=== PATIENT | female | born 1970 | race Caucasian/White ===

== ENCOUNTER 2017-06-29 18:48 | Emergency (ER) | payer OTHER ==
[2017-06-29] MEDS ORDERED: DEXAMETHASONE 4 MG TAB PO STA (19:52)
[2017-06-29] MEDS ORDERED: ALBUTEROL NEBULIZED 2.5 MG/3 ML INHALATION STA (19:52)
--- NOTE | 2017-06-29 20:13 | XR ---
EXAMINATION TYPE: XR soft tissue neck DATE OF EXAM: 06/29/2017 COMPARISON: NONE HISTORY: Cough TECHNIQUE: 2 views FINDINGS: Epiglottis appears normal. Subglottic trachea appears normal. Prevertebral soft tissues eric ear normal. IMPRESSION: Normal cervical soft tissue exam.
--- NOTE | 2017-06-29 20:13 | XR ---
EXAMINATION TYPE: XR chest 2V DATE OF EXAM: 06/29/2017 COMPARISON: NONE HISTORY: Cough TECHNIQUE: Frontal and lateral views of the chest are obtained. FINDINGS: Heart and mediastinum are normal. Lungs are clear. Diaphragm is normal. Bony thorax appear s normal. IMPRESSION: Normal chest
--- NOTE | 2017-06-29 20:17 | ED ---
General Adult HPI - General Chief complaint: Shortness of Breath Stated complaint: Diff Breathing Time Seen by Provider: 06/29/17 19:19 Source: patient Mode of arrival: ambulatory Limitations: no limitations - History of Present Illness Initial comments: patient is a 46-year-old female presents with a chief complaint of shortness of breath and lost voice. Patient states this started yesterday. She cannot identify any inciting incidences. There are no aggravating or alleviating factors. Patient also admits to being "run down". She does not have any significant medical history. Patient states that she was vaccinated as a child. She denies any fevers, chills, nausea, vomiting. - Related Data Home Medications Medication Instructions Recorded Confirmed Levothyroxine Sodium [Synthroid] 25 mcg PO DAILY 06/29/17 06/29/17 Allergies Allergy/AdvReac Type Severity Reaction Status Date / Time Milk Containing Products Allergy Unknown Verified 06/29/17 19:17 [Dairy] acetaminophen [From Percocet] AdvReac Nausea & Verified 06/29/17 19:17 Vomiting oxycodone [From Percocet] AdvReac Nausea & Verified 06/29/17 19:17 Vomiting Review of Systems ROS Statement: Those systems with pertinent positive or pertinent negative responses have been documented in the HPI. ROS Other: All systems not noted in ROS Statement are negative. Constitutional: Denies: fever Eyes: Denies: vision change ENT: Reports: throat pain. Denies: ear pain Respiratory: Reports: cough Cardiovascular: Reports: chest pain Endocrine: Reports: fatigue Gastrointestinal: Denies: abdominal pain, nausea, vomiting Genitourinary: Denies: urgency, dysuria Musculoskeletal: Denies: back pain Skin: Denies: rash, lesions Neurological: Denies: headache Past Medical History Past Medical History: Thyroid Disorder History of Any Multi-Drug Resistant Organisms: None Reported Additional Past Surgical History / Comment(s): vein surgery Past Psychological History: Depression Smoking Status: Never smoker Past Alcohol Use History: None Reported Past Drug Use History: None Reported General Exam Limitations: no limitations General appearance: alert, in no apparent distress Head exam: Present: atraumatic, normocephalic Eye exam: Present: normal appearance ENT exam: Present: normal exam, mucous membranes moist Respiratory exam: Present: normal lung sounds bilaterally Cardiovascular Exam: Present: regular rate, normal rhythm GI/Abdominal exam: Present: soft. Absent: distended, tenderness Rectal exam: Present: deferred Neurological exam: Present: alert, oriented X3, CN II-XII intact Psychiatric exam: Present: normal affect, normal mood Skin exam: Present: warm, dry, intact Course Vital Signs 06/29/17 06/29/17 06/29/17 19:05 19:18 20:20 Temperature 97.5 F L Pulse Rate 87 70 Respiratory 18 20 16 Rate Blood Pressure 121/71 O2 Sat by Pulse 99 Oximetry 06/29/17 06/29/17 20:30 21:14 Temperature Pulse Rate 72 83 Respiratory 16 16 Rate Blood Pressure 104/59 O2 Sat by Pulse 100 Oximetry Medical Decision Making - Medical Decision Making patient presents with chief complaint of shortness of breath, cough, and lost voice. This is been going on for 1 day. Patient does admit to having sick contacts at work. History and physical examination most consistent with laryngitis however patient will have a chest x-ray, and soft tissue neck. Patient perked negative, this point PE is very unlikely. Patient will be given a dose of Decadron in the emergency department.x-ray of the chest do not show any acute process. X-ray soft tissue neck does not show any narrowing of the airway. I discussed the findings with the patient. She received a dose of steroids in the emergency department. I discussed the need for vocal rest, anti -inflammatories and follow up with primary care. She is agreeable with the current care plan. Patient is stable for discharge. She was given X wasn't signs and symptoms that should prompt return visit to the emergency department. Disposition Clinical Impression: Laryngitis Disposition: HOME SELF-CARE Condition: Good Instructions: Laryngitis (ED) Referrals: None,Stated [Primary Care Provider] - 1-2 days
[2017-06-29 21:39] VITALS: BP 114/71; PULSE 87; RESP 18; TEMP 98.7
== END 2017-06-29 21:40 | disposition home or self-care (01) ==
LOC: EC 18:48
DX: J04.0 Acute laryngitis (principal); E07.9 Disorder of thyroid, unspecified; R06.02 Shortness of breath; Z91.011 Allergy to milk products; Z88.5 Allergy status to narcotic agent; Z88.6 Allergy status to analgesic agent; Z79.899 Other long term (current) drug therapy
CPT/HCPCS: 99285; 94640; 70360; 71020; J8540

== ENCOUNTER 2017-08-04 12:32 | Observation (INO) | payer OTHER ==
[2017-08-04] MEDS ORDERED: NITROGLYCERIN SL TABS 0.4 MG TAB SUBLINGUAL STA (12:55)
[2017-08-04] MEDS ORDERED: ASPIRIN 81 MG PO STA (12:55)
--- NOTE | 2017-08-04 12:58 | ED ---
Chest Pain HPI - General Chief Complaint: Chest Pain Stated Complaint: Chest Tightness, Blurred Vision Time Seen by Provider: 08/04/17 12:41 Source: patient, RN notes reviewed Mode of arrival: wheelchair Limitations: no limitations - History of Present Illness Initial Comments: this is a 38-year-old female who states she had the onset at work earlier today of chest pain pressure achy in nature retrosternal upper chest across her some radiation of the neck for last 1 or 2 hours it was really 7/10 severity now down to a 4/10 chest and complains some occipital and left-sided headache . She has some nausea no vomiting she also states she had a little bit of blurry vision which is resolved she has a history of PSVT but no issues with this recently. She also states she has some shakes earlier. No prior history of heart disease or is a family history of her dad having heart disease. He did not take any aspirin today. MD Complaint: chest pain, other - Related Data Home Medications Medication Instructions Recorded Confirmed Levothyroxine Sodium [Synthroid] 25 mcg PO DAILY 06/29/17 08/04/17 Allergies Allergy/AdvReac Type Severity Reaction Status Date / Time Milk Containing Products Allergy Unknown Verified 08/04/17 13:46 [Dairy] acetaminophen [From Percocet] AdvReac Nausea & Verified 08/04/17 13:46 Vomiting oxycodone [From Percocet] AdvReac Nausea & Verified 08/04/17 13:46 Vomiting Review of Systems ROS Statement: Those systems with pertinent positive or pertinent negative responses have been documented in the HPI. ROS Other: All systems not noted in ROS Statement are negative. EKG Findings - EKG Results: EKG: interpreted by BALBINA, sinus rhythm (sinus rhythm with evidence of first- degree AV block rate was 70. Interval 214 QRS duration 74 he says QTC of 370/ 389 st-t wave changes.) Past Medical History Past Medical History: Thyroid Disorder History of Any Multi-Drug Resistant Organisms: None Reported Additional Past Surgical History / Comment(s): vein surgery Past Psychological History: Depression Smoking Status: Never smoker Past Alcohol Use History: None Reported Past Drug Use History: None Reported General Exam - General Exam Comments Initial Comments: this is a well-developed well-nourished awake alert oriented 3 female Limitations: no limitations General appearance: alert, anxious Head exam: Present: atraumatic, normocephalic, normal inspection Eye exam: Present: normal appearance, PERRL, EOMI. Absent: scleral icterus, conjunctival injection, periorbital swelling ENT exam: Present: normal exam, mucous membranes moist Neck exam: Present: normal inspection. Absent: tenderness, meningismus, lymphadenopathy Respiratory exam: Present: normal lung sounds bilaterally. Absent: respiratory distress, wheezes, rales, rhonchi, stridor Cardiovascular Exam: Present: regular rate, normal rhythm, normal heart sounds. Absent: systolic murmur, diastolic murmur, rubs, gallop, clicks GI/Abdominal exam: Present: soft, normal bowel sounds. Absent: distended, tenderness, guarding, rebound, rigid Extremities exam: Present: normal inspection, full ROM, normal capillary refill. Absent: tenderness, pedal edema, joint swelling, calf tenderness Back exam: Present: normal inspection Neurological exam: Present: alert, oriented X3, CN II-XII intact Psychiatric exam: Present: normal affect, normal mood Skin exam: Present: warm, dry, intact, normal color. Absent: rash Course Vital Signs 08/04/17 08/04/17 08/04/17 12:36 12:51 13:55 Temperature 97.8 F Pulse Rate 84 77 73 Respiratory 18 16 16 Rate Blood Pressure 158/73 150/89 120/79 O2 Sat by Pulse 99 100 99 Oximetry 08/04/17 15:20 Temperature 97.5 F L Pulse Rate 62 Respiratory 16 Rate Blood Pressure 116/62 O2 Sat by Pulse 100 Oximetry Chest Pain MDM - MDM Patient did get relief from the chest pain with nitroglycerin. Her lab work is thus far negative. X-rays are negative for acute findings. Patient's presentation consistent with angina. Critical Care Time Critical Care Time: Yes Critical Care Time: preliminary clinical care time which includes initial presentation with history physical labs x-rays reevaluation the patient to responsive therapy admission orders documentation the above discussed with a physician Disposition Clinical Impression: Unstable angina pectoris, Chest pain Disposition: ADMITTED IP TO THIS [facility] Condition: Stable Referrals: None,Stated [Primary Care Provider] - 1-2 days
[2017-08-04 13:07] LABS: Basophils % (A) 1 %; Eosinophils # (A) 0.1 k/uL (0-0.7); Eosinophils % (A) 2 %; HCT 40.2 % (34.0-46.0); HGB 12.4 gm/dL (11.4-16.0); Lymphocytes # (A) 1.2 k/uL (1.0-4.8); Lymphocytes % (A) 26 %; MCH 27.3 pg (25.0-35.0); MCV 88.1 fL (80.0-100.0); Mean Platelet Volume 7.6; Monocytes # (A) 0.3 k/uL (0-1.0); Monocytes % (A) 5 %; Neutrophils # (A) 3.1 k/uL (1.3-7.7); Neutrophils % (A) 64 %; Platelet Count 166 k/uL (150-450); RBC 4.56 m/uL (3.80-5.40); RDW 13.6 % (11.5-15.5); WBC 4.8 k/uL (3.8-10.6)
[2017-08-04 13:18] LABS: ALT 27 U/L (9-52); AST 19 U/L (14-36); Albumin 4.2 g/dL (3.5-5.0); Alkaline Phosphatase 49 U/L (38-126); Anion Gap 8 mmol/L; Blood Urea Nitrogen 14 mg/dL (7-17); Calcium 9.5 mg/dL (8.4-10.2); Carbon Dioxide 28 mmol/L (22-30); Chloride 104 mmol/L (98-107); Glucose 107 mg/dL (74-99); Magnesium 1.9 mg/dL (1.6-2.3); Potassium 3.7 mmol/L (3.5-5.1); Sodium 140 mmol/L (137-145); Total Bilirubin 0.4 mg/dL (0.2-1.3); Total Protein 7.3 g/dL (6.3-8.2)
--- NOTE | 2017-08-04 13:21 | XR ---
EXAMINATION TYPE: XR chest 2V DATE OF EXAM: 08/04/2017 COMPARISON: Chest x-ray June 29, 2017 HISTORY: Chest and arm pain today. TECHNIQUE: Frontal and lateral views of the chest are obtained. FINDINGS: There is no focal air space opacity, pleural effusion, or pneumothorax seen. The cardiac silhouette size is within normal limits. The osseous structures are intact. IMPRESSION: No acute process. No significant change from prior.
[2017-08-04 13:28] LABS: D-Dimer 0.58 mg/L FEU (<0.60); INR 1.1 (<1.2); Partial Thromboplastin Time 22.2 sec (22.0-30.0); Prothrombin Time 10.4 sec (9.0-12.0)
[2017-08-04 13:33] LABS: Creatine Kinase 158 U/L (30-135)
[2017-08-04 13:46] LABS: Creatine Kinase MB <0.2 ng/mL (0.0-2.4); Troponin I <0.012 ng/mL (0.000-0.034)
[2017-08-04] MEDS ORDERED: NITROGLYCERIN SL TABS 0.4 MG TAB SUBLINGUAL PRN (16:46)
[2017-08-04] MEDS ORDERED: HEPARIN SODIUM,PORCINE 5,000 UNIT/ML 1 ML VIAL IV ONE (16:46)
[2017-08-04] MEDS ORDERED: SODIUM CHLORIDE 0.9% 1,000 ML IV SCH (17:00)
[2017-08-04] MEDS ORDERED: HEPARIN SOD,PORK IN 0.45% NACL 25,000 UNIT in 0.45% NACL 1 500ML.BAG IV SCH (17:00)
[2017-08-04 18:44] VITALS: BMI 25.5
[2017-08-04] MEDS: NITROGLYCERIN OINT 1 INCH/GM PACKET TOPICAL SCH (20:01)
[2017-08-04 20:06] LABS: Creatine Kinase 301 U/L (30-135)
[2017-08-04 20:19] LABS: Creatine Kinase MB 0.6 ng/mL (0.0-2.4); Troponin I <0.012 ng/mL (0.000-0.034)
[2017-08-05] MEDS: NITROGLYCERIN OINT 1 INCH/GM PACKET TOPICAL SCH ×3 (00:18→11:35)
[2017-08-05 00:56] LABS: Creatine Kinase 93 U/L (30-135)
[2017-08-05 01:09] LABS: Creatine Kinase MB <0.2 ng/mL (0.0-2.4); Troponin I <0.012 ng/mL (0.000-0.034)
[2017-08-05] MEDS ORDERED: IBUPROFEN 600 MG TAB PO PRN (02:45)
[2017-08-05] MEDS: IBUPROFEN 600 MG TAB PO PRN ×2 (03:31→12:10)
[2017-08-05 03:42] VITALS: RESP 18
[2017-08-05] MEDS ORDERED: LEVOTHYROXINE 25 MCG TAB PO SCH (06:30)
--- NOTE | 2017-08-05 07:53 | P.CRDCN ---
History of Present Illness Consult date: 08/05/17 Chief complaint: Chest pain History of present illness: This is a pleasant 46-year-old female patient with no significant past medical history presented to the emergency room complaining of chest discomfort. She was in her usual state of health until yesterday when she was at work and suddenly she started experiencing headache and then she felt weak. Subsequently she developed chest discomfort in the mid of the chest as a dull kind of feeling without radiation to the arm or neck or shoulder and without associated symptoms of shortness of breath, dizziness, nausea or vomiting, or syncope. The discomfort lasted about half an hour until she presented to the emergency room and it was subsiding at that point. She was given aspirin and nitroglycerin sublingual with mild improvement in the chest discomfort. In terms of workup, the EKG showed sinus rhythm without any ST or T-wave abnormalities consistent with ischemia. 3 sets of cardiac enzymes were checked and came in to be unremarkable. The chest x-ray did not show any acute abnormalities. The d-dimer came in to be unremarkable. The CBC and BNP came in to be unremarkable as well. In terms of past medical history, the patient does not have diabetes or hypertension or dyslipidemia and she never been diagnosed with CAD in the past. She stated that she was diagnosed was tachycardia at some point in the past. 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 She does not smoke or drink alcohol. She does have a family history of cardiac disease with her mother but is unclear if his coronary artery disease or not. Past Medical History Past Medical History: Thyroid Disorder History of Any Multi-Drug Resistant Organisms: None Reported Additional Past Surgical History / Comment(s): vein surgery Past Psychological History: Depression Smoking Status: Never smoker Past Alcohol Use History: None Reported Past Drug Use History: None Reported Medications and Allergies Home Medications Medication Instructions Recorded Confirmed Type Levothyroxine Sodium [Synthroid] 25 mcg PO DAILY 06/29/17 08/04/17 History Allergies Allergy/AdvReac Type Severity Reaction Status Date / Time Milk Containing Products Allergy Unknown Verified 08/04/17 13:46 [Dairy] acetaminophen [From Percocet] AdvReac Nausea & Verified 08/04/17 13:46 Vomiting oxycodone [From Percocet] AdvReac Nausea & Verified 08/04/17 13:46 Vomiting Physical Exam Vitals: Vital Signs Temp Pulse Pulse Resp BP BP Pulse Ox 12/28/17 03:38 66 18 100/53 99 08/04/17 20:00 97.5 F L 80 16 116/58 99 08/04/17 18:55 97.9 F 68 16 128/74 100 08/04/17 17:56 98.2 F 08/04/17 17:51 98 F 69 16 129/77 100 08/04/17 15:20 97.5 F L 62 16 116/62 100 08/04/17 13:55 73 16 120/79 99 08/04/17 12:51 77 16 150/89 100 08/04/17 12:36 97.8 F 84 18 158/73 99 Intake and Output 08/04/17 08/05/17 08/05/17 22:59 06:59 14:59 Intake Total 178.535 Balance 178.535 Intake: Intake, IV Titration 178.535 Amount Heparin Sod,Pork in 0.45% 178.535 NaCl 25,000 unit In 0.45 % NaCl 1 500ml.bag @ 12 UNITS/KG/HR 18.28 mls/hr IV .Q24H [facility] Rx#: [id number] Other: Voiding Method Toilet # Voids 1 1 Weight 76.2 kg 79.1 kg - Constitutional General appearance: no acute distress - Respiratory Respiratory: bilateral: CTA - Cardiovascular Rhythm: regular Heart sounds: normal: S1, S2 Results 08/04/17 12:50 08/04/17 12:50 Cardiac Enzymes 08/04/17 08/04/17 08/04/17 Range/Units 12:50 12:50 19:32 AST 19 (14-36) U/L CK-MB (CK-2) <0.2 0.6 (0.0-2.4) ng/mL Troponin I <0.012 <0.012 (0.000-0.034) ng/mL 08/05/17 Range/Units 00:13 AST (14-36) U/L CK-MB (CK-2) <0.2 (0.0-2.4) ng/mL Troponin I <0.012 (0.000-0.034) ng/mL Coagulation 08/04/17 08/05/17 08/05/17 Range/Units 12:50 00:13 07:18 PT 10.4 (9.0-12.0) sec APTT 22.2 38.0 H 41.7 H (22.0-30.0) sec CBC 08/04/17 Range/Units 12:50 WBC 4.8 (3.8-10.6) k/uL RBC 4.56 (3.80-5.40) m/uL Hgb 12.4 (11.4-16.0) gm/dL Hct 40.2 (34.0-46.0) % Plt Count 166 (150-450) k/uL Comprehensive Metabolic Panel 08/04/17 Range/Units 12:50 Sodium 140 (137-145) mmol/L Potassium 3.7 (3.5-5.1) mmol/L Chloride 104 (98-107) mmol/L Carbon Dioxide 28 (22-30) mmol/L BUN 14 (7-17) mg/dL Creatinine 0.74 (0.52-1.04) mg/dL Glucose 107 H (74-99) mg/dL Calcium 9.5 (8.4-10.2) mg/dL AST 19 (14-36) U/L ALT 27 (9-52) U/L Alkaline Phosphatase 49 (38-126) U/L Total Protein 7.3 (6.3-8.2) g/dL Albumin 4.2 (3.5-5.0) g/dL Current Medications Generic Name Dose Route Start Last Admin Trade Name Freq PRN Reason Stop Dose Admin Aspirin 325 mg 08/05/17 09:00 Aspirin PO DAILY [facility] Heparin Sodium/Sodium Chloride 500 mls @ 18.28 mls/hr 08/04/17 17:00 03:34 25,000 unit/ Sodium Chloride IV 15 units/kg/hr .Q24H [facility] 22.86 mls/hr Protocol Titration 12 UNITS/KG/HR Ibuprofen 600 mg 08/05/17 02:58 08/05/17 03:31 Motrin PO 600 mg QID PRN Administration Mild to Moderate Pain Levothyroxine Sodium 25 mcg 08/05/17 06:30 08/05/17 06:20 Synthroid PO 25 mcg 0630 [facility] Administration Nitroglycerin 1 inch 08/04/17 18:00 08/05/17 06:19 Nitro-Bid Oint TOPICAL Not Given Q6HR [facility] Nitroglycerin 0.4 mg 08/04/17 16:46 Nitrostat SUBLINGUAL Q5M PRN Chest Pain Sodium Chloride 10 ml 08/04/17 21:00 08/04/17 19:21 Saline Flush IV Not Given Q12HR [facility] Intake and Output 08/04/17 08/05/17 08/05/17 22:59 06:59 14:59 Intake Total 178.535 Balance 178.535 Intake: Intake, IV Titration 178.535 Amount Heparin Sod,Pork in 0.45% 178.535 NaCl 25,000 unit In 0.45 % NaCl 1 500ml.bag @ 12 UNITS/KG/HR 18.28 mls/hr IV .Q24H [facility] Rx#: [id number] Other: Voiding Method Toilet # Voids 1 1 Weight 76.2 kg 79.1 kg 08/04/17 12:50 08/04/17 12:50 Assessment and Plan Assessment: Assessment #1 atypical chest discomfort Plan #1 the patient was ruled out for acute coronary event #2 I will schedule the patient to undergo an exercise treadmill stress test #3 obtain an echocardiogram was Doppler #4 follow-up with the patient Thank you for allowing us participate in her care
[2017-08-05 08:27] LABS: Cholesterol 164 mg/dL (<200); HDL Cholesterol 50 mg/dL (40-60); LDL Cholesterol,Calculated 103 mg/dL (0-99); Triglycerides 54 mg/dL (<150)
[2017-08-05] MEDS ORDERED: ASPIRIN 325 MG TAB PO SCH (09:00)
[2017-08-05 12:15] VITALS: TEMP 97.3
[2017-08-05 12:16] VITALS: BP 111/63; PULSE 84
--- NOTE | 2017-08-05 12:20 | ECHOF ---
Referral Reason:chest pain MEASUREMENTS -------- HEIGHT: 172.7 cm WEIGHT: 78.9 kg BP: 100/53 RVIDd: 3.2 cm (< 3.3) IVSd: 1.0 cm (0.6 - 1.1) LVIDd: 4.2 cm (3.9 - 5.3) LVPWd: 1.0 cm (0.6 - 1.1) IVSs: 1.2 cm LVIDs: 2.9 cm LVPWs: 1.7 cm LA Diam: 3.2 cm (2.7 - 3.8) LAESV Index (A-L): 24.34 ml/m Ao Diam: 3.4 cm (2.0 - 3.7) AV Cusp: 2.4 cm (1.5 - 2.6) MV EXCURSION: 13.254 mm (> 18.000) MV EF SLOPE: 80 mm/s (70 - 150) EPSS: 0.5 cm MV E Denis: 0.92 m/s MV DecT: 220 ms MV A Denis: 0.69 m/s MV E/A Ratio: 1.34 FINDINGS -------- Sinus rhythm. This was a technically adequate study. The left ventricular size is normal. Left ventricular wall thickness is normal. Overall left vent ricular systolic function is normal with, an EF between 55 - 60 %. The right ventricle is normal in size. The left atrial size is normal. The right atrium is normal in size. The aortic valve is trileaflet and appears structurally normal. There is trace mitral regurgitation. The tricuspid valve appears structurally normal. The pulmonic valve was not well visualized. The aortic root size is normal. Normal inferior vena cava with normal inspiratory collapse consistent with estimated right atrial pre ssure of 5 mmHg. There is no pericardial effusion. CONCLUSIONS -------- 1. Sinus rhythm. 2. This was a technically adequate study. 3. The left ventricular size is normal. 4. Left ventricular wall thickness is normal. 5. Overall left ventricular systolic function is normal with, an EF between 55 - 60 %. 6. The right ventricle is normal in size. 7. The left atrial size is normal. 8. The right atrium is normal in size. 9. The aortic valve is trileaflet and appears structurally normal. 10. There is trace mitral regurgitation. 11. The tricuspid valve appears structurally normal. 12. The pulmonic valve was not well visualized. 13. The aortic root size is normal. 14. Normal inferior vena cava with normal inspiratory collapse consistent with estimated right atrial pressure of 5 mmHg. 15. There is no pericardial effusion. SENIOR OPERATIONS ANALYST: Gina Soto RDCS
[2017-08-05] MEDS ORDERED: BUTALB/APAP/CAFF 50-325-40MG TAB PO PRN (13:28)
--- NOTE | 2017-08-05 13:40 | EST ---
EXERCISE STRESS DATE OF SERVICE: 08/05/2017 AGE: 46 SEX: Female HT: 68 WT: 174 PROTOCOL: Matt. STAGE: II DURATION OF EXERCISE: 7:12 HEART RATE REST: 76 BLOOD PRESSURE REST: 112/71 MAXIMUM HEART RATE ACHIEVED: 162 MAXIMUM BLOOD PRESSURE: 162/54 85% MPHR: 146 100% MPHR: 172 METS: 8.7 INDICATIONS: Chest pain. CLINICAL INFORMATION: Baseline EKG revealed normal sinus rhythm with isolated PVCs. Patient walked for 7 minutes 12 seconds. Resting heart rate was 76 beats per minute. Peak heart rate was 162 beats per minute. Resting blood pressure was 112/71. Peak blood pressure 162/54. EKG did not reveal any ST segment changes to indicate ischemia. Patient did not have any angina or arrhythmia. By EKG criteria, this is a negative stress test with fair exercise capacity. MMODL / IJN: [id number] /
--- NOTE | 2017-08-05 18:15 | P.HPIM ---
History of Present Illness This is a pleasant 46-year-old female patient with no significant past medical history presented to the emergency room complaining of chest discomfort. She was in her usual state of health until yesterday when she was at work and suddenly she started experiencing headache and then she felt weak. Subsequently she developed chest discomfort in the mid of the chest as a dull kind of feeling without radiation to the arm or neck or shoulder and without associated symptoms of shortness of breath, dizziness, nausea or vomiting, or syncope. The discomfort lasted about half an hour until she presented to the emergency room and it was subsiding at that point. She was given aspirin and nitroglycerin sublingual with mild improvement in the chest discomfort. In terms of workup, the EKG showed sinus rhythm without any ST or T-wave abnormalities consistent with ischemia. 3 sets of cardiac enzymes were checked and came in to be unremarkable. The chest x-ray did not show any acute abnormalities. The d-dimer came in to be unremarkable. The CBC and BNP came in to be unremarkable as well. Patient on a stress test which was negative and patient is being discharged today.. Patient also comparing of headache has been going on for some time and patient was complaining of visual problems as well. Patient will need outpatient visual acuity testing and need to be tested for glaucoma patient also has neck pain, cervical cephalalgia is a also a differential along with migraine patient will be given symptomatically treatment for headache will be discharged to follow up with the neurology and ophthalmology as an outpatient Review of Systems REVIEW OF SYSTEMS: CONSTITUTIONAL: No fever, no malaise, no fatigue. HEENT: No recent visual problems or hearing problems. Denied any sore throat. CARDIOVASCULAR: No orthopnea, PND, no palpitations, no syncope. PULMONARY: No shortness of breath, no cough, no hemoptysis. GASTROINTESTINAL: No diarrhea, no nausea, no vomiting, no abdominal pain. Normoactive bowel sounds. NEUROLOGICAL: no weakness, no numbness. HEMATOLOGICAL: Denies any bleeding or petechiae. GENITOURINARY: Denies any burning micturition, frequency, or urgency. MUSCULOSKELETAL/RHEUMATOLOGICAL: Denies any joint pain, swelling, or any muscle pain. ENDOCRINE: Denies any polyuria or polydipsia. The rest of the 14-point review of systems is negative. Past Medical History Past Medical History: Thyroid Disorder History of Any Multi-Drug Resistant Organisms: None Reported Additional Past Surgical History / Comment(s): vein surgery Past Psychological History: Depression Smoking Status: Never smoker Past Alcohol Use History: None Reported Past Drug Use History: None Reported Medications and Allergies Home Medications Medication Instructions Recorded Confirmed Type Levothyroxine Sodium [Synthroid] 25 mcg PO DAILY 06/29/17 08/04/17 History Butalb/Acetaminophen/Caffeine 1 - 2 cap PO Q4HR #30 cap 08/05/17 Rx [Fioricet 50-300-40 mg Capsule] Allergies Allergy/AdvReac Type Severity Reaction Status Date / Time Milk Containing Products Allergy Unknown Verified 08/04/17 13:46 [Dairy] acetaminophen [From Percocet] AdvReac Nausea & Verified 08/04/17 13:46 Vomiting oxycodone [From Percocet] AdvReac Nausea & Verified 08/04/17 13:46 Vomiting Physical Exam Vitals: Vital Signs Temp Pulse Resp BP Pulse Ox 08/05/17 12:00 84 18 111/63 98 08/05/17 08:00 97.3 F L 70 18 120/67 99 08/05/17 03:38 66 18 100/53 99 08/04/17 20:00 97.5 F L 80 16 116/58 99 08/04/17 18:55 97.9 F 68 16 128/74 100 Intake and Output 08/05/17 08/05/17 08/05/17 06:59 14:59 22:59 Intake Total 178.535 Balance 178.535 Intake: Intake, IV Titration 178.535 Amount Heparin Sod,Pork in 0.45% 178.535 NaCl 25,000 unit In 0.45 % NaCl 1 500ml.bag @ 12 UNITS/KG/HR 18.28 mls/hr IV .Q24H [facility] Rx#: [id number] Other: # Voids 1 Weight 79.1 kg PHYSICAL EXAMINATION: GENERAL: The patient is alert and oriented x3, not in any acute distress. Well developed, well nourished. HEENT: Pupils are round and equally reacting to light. EOMI. No scleral icterus. No conjunctival pallor. Normocephalic, atraumatic. No pharyngeal erythema. No thyromegaly. CARDIOVASCULAR: S1 and S2 present. No murmurs, rubs, or gallops. PULMONARY: Chest is clear to auscultation, no wheezing or crackles. ABDOMEN: Soft, nontender, nondistended, normoactive bowel sounds. No palpable organomegaly. MUSCULOSKELETAL: No joint swelling or deformity. EXTREMITIES: No cyanosis, clubbing, or pedal edema. NEUROLOGICAL: Gross neurological examination did not reveal any focal deficits. SKIN: No rashes. Results CBC & Chem 7: 08/04/17 12:50 08/04/17 12:50 Labs: Abnormal Lab Results - Last 24 Hours (Table) 08/04/17 08/05/17 08/05/17 Range/Units 19:32 00:13 07:18 APTT 38.0 H (22.0-30.0) sec Total Creatine Kinase 301 H (30-135) U/L LDL Cholesterol, Calc 103 H (0-99) mg/dL 08/05/17 Range/Units 07:18 APTT 41.7 H (22.0-30.0) sec Total Creatine Kinase (30-135) U/L LDL Cholesterol, Calc (0-99) mg/dL Assessment and Plan Plan: 1 chest pain rule out acute coronary syndromes patient chest pain is atypical in nature patient did undergo stress test which was negative patient will be discharged today. Her chest pain resolved May be musculoskeletal in nature -Headache: Differentials as mentioned above patient will need to follow up with ophthalmology and neurology as mentioned above patient will be given prescription for Fioricet for her headache. -hypothyroidism continue with levofloxacin
--- NOTE | 2017-08-05 18:16 | P.DS ---
Providers Date of admission: 08/04/17 16:52 Attending physician: Manoj Hooks MD Consults: 08/04/17 16:46 Consult Physician Urgent Consulting Provider: Panda King Consult Reason/Comments: chest pain Do you want consulting provider notified?: Yes Primary care physician: Stated None Hospital Course: Refer to my [facility] Patient Condition at Discharge: Stable Plan - Discharge Summary New Discharge Prescriptions: New Butalb/Acetaminophen/Caffeine [Fioricet 50-300-40 mg Capsule] 1 - 2 cap PO Q4HR #30 cap No Action Levothyroxine Sodium [Synthroid] 25 mcg PO DAILY Discharge Medication List Levothyroxine Sodium [Synthroid] 25 mcg PO DAILY 06/29/17 [History] Butalb/Acetaminophen/Caffeine [Fioricet 50-300-40 mg Capsule] 1 - 2 cap PO Q4HR #30 cap 08/05/17 [Rx] Follow up Appointment(s)/Referral(s): Mira Ceballos MD [STAFF PHYSICIAN] - 1 Week Jass Constantino MD [STAFF PHYSICIAN] - 1 Week Simon Nuñez MD [STAFF PHYSICIAN] - 1 Week Patient Instructions/Handouts: Chest Pain (DC), Acute Headache (DC) Activity/Diet/Wound Care/Special Instructions: If fioricet not covered, ibuprofen or excedrin OK to take. Discharge Disposition: HOME SELF-CARE
== END 2017-08-05 14:22 | disposition home or self-care (01) ==
LOC: EC 12:32 → 6SEL 16:52
PROVIDERS: ADMIT Internal Medicine; ATTEND Internal Medicine
DX: R07.89 Other chest pain (principal); R11.0 Nausea; R51 Headache; R53.1 Weakness; H53.8 Other visual disturbances; E03.9 Hypothyroidism, unspecified; Z79.899 Other long term (current) drug therapy; Z88.5 Allergy status to narcotic agent; Z82.49 Family history of ischemic heart disease and other diseases of the circulatory system
CPT/HCPCS: 96366 ×2; 96376; 96365; 99285; 36415; 93005; 93017; 93306; 85379; 83880; 80061; 80053; 82550 ×2; 82553 ×2; 83735; 84484 ×2; 85025; 85610; 85730 ×2; 71020; G0378 ×2; J1644 ×2

== ENCOUNTER 2019-04-17 20:19 | Emergency (ER) | payer OTHER ==
[2019-04-17] MEDS ORDERED: SODIUM CHLORIDE 0.9% 1,000 ML IV ONE (21:17)
--- NOTE | 2019-04-17 21:22 | ED ---
Headache HPI - General Chief Complaint: Headache Stated Complaint: Headache Time Seen by Provider: 04/17/19 21:17 Mode of arrival: ambulatory Limitations: no limitations - History of Present Illness Initial Comments: Jenna is a previously healthy 48-year-old female who presents the emergency department today for evaluation of generalized malaise, fatigue and headache. Patient reports that she's been donating plasma approximately once every 2 weeks. She reports that she donated plasma on Wednesday and since that time has been feeling very tired she also developed a pressure-like headache. Patient states she's been drinking plenty of fluids make sure she is hydrated but hasn't felt any better. Patient denies any associated fevers chills nausea or vomiting. She describes her headache as pressure-like, she has not take Tylenol, Motrin or any other medications for her as she states that she's had similar headaches in the past and never responded any medications. This is not the worse headache of her life it was not sudden on onset it is not associated with any fever or focal neurologic deficits. - Related Data Home Medications Medication Instructions Recorded Confirmed Levothyroxine Sodium [Synthroid] 25 mcg PO DAILY 06/29/17 04/17/19 Allergies Allergy/AdvReac Type Severity Reaction Status Date / Time Milk Containing Products Allergy Unknown Verified 04/17/19 21:14 [Dairy] acetaminophen [From Percocet] AdvReac Nausea & Verified 04/17/19 21:14 Vomiting oxycodone [From Percocet] AdvReac Nausea & Verified 04/17/19 21:14 Vomiting Review of Systems ROS Statement: Those systems with pertinent positive or pertinent negative responses have been documented in the HPI. ROS Other: All systems not noted in ROS Statement are negative. Past Medical History Past Medical History: Thyroid Disorder History of Any Multi-Drug Resistant Organisms: None Reported Additional Past Surgical History / Comment(s): vein surgery Past Psychological History: Depression Smoking Status: Never smoker Past Alcohol Use History: None Reported Past Drug Use History: None Reported General Exam Limitations: no limitations Course Vital Signs 04/17/19 04/17/19 04/17/19 20:44 22:04 23:15 Temperature 98.0 F 98.7 F Pulse Rate 78 75 76 Respiratory 18 18 19 Rate Blood Pressure 129/84 135/87 121/73 O2 Sat by Pulse 99 98 99 Oximetry Medical Decision Making - Medical Decision Making The patient was seen and evaluated, history is obtained from patient and sinus 48-year-old female presenting with general malaise after donating plasma in addition she has a mild headache that she has not tried any [id number] remedies for Labs IV fluids Toradol were ordered Labs were reviewed with no significant abnormalities Patient was reevaluated after IV fluids and Toradol. She reports her headache is improving. At this time the patient is comfortable with the plan for d ischarge home and outpatient follow-up. I encouraged the patient to decrease the frequency of her plasma donations is a do feel this is likely contributing to her generalized malaise. - Lab Data Result diagrams: 04/17/19 22:02 04/17/19 22:02 Lab Results 04/17/19 04/17/19 Range/Units 22:02 22:02 WBC 5.9 (3.8-10.6) k/uL RBC 4.49 (3.80-5.40) m/uL Hgb 12.4 (11.4-16.0) gm/dL Hct 39.3 (34.0-46.0) % MCV 87.5 (80.0-100.0) fL MCH 27.7 (25.0-35.0) pg MCHC 31.7 (31.0-37.0) g/dL RDW 13.2 (11.5-15.5) % Plt Count 208 (150-450) k/uL Neutrophils % 59 % Lymphocytes % 32 % Monocytes % 4 % Eosinophils % 2 % Basophils % 0 % Neutrophils # 3.5 (1.3-7.7) k/uL Lymphocytes # 1.9 (1.0-4.8) k/uL Monocytes # 0.2 (0-1.0) k/uL Eosinophils # 0.1 (0-0.7) k/uL Basophils # 0.0 (0-0.2) k/uL Sodium 138 (137-145) mmol/L Potassium 4.1 (3.5-5.1) mmol/L Chloride 108 H (98-107) mmol/L Carbon Dioxide 27 (22-30) mmol/L Anion Gap 3 mmol/L BUN 13 (7-17) mg/dL Creatinine 0.67 (0.52-1.04) mg/dL Est GFR (CKD-EPI)AfAm >90 (>60 ml/min/1.73 sqM) Est GFR (CKD-EPI)NonAf >90 (>60 ml/min/1.73 sqM) Glucose 95 (74-99) mg/dL Calcium 8.8 (8.4-10.2) mg/dL Total Bilirubin 0.2 (0.2-1.3) mg/dL AST 19 (14-36) U/L ALT 18 (9-52) U/L Alkaline Phosphatase 38 (38-126) U/L Total Protein 5.9 L (6.3-8.2) g/dL Albumin 3.3 L (3.5-5.0) g/dL Disposition Clinical Impression: Headache Disposition: HOME SELF-CARE Condition: Stable Instructions (If sedation given, give patient instructions): Acute Headache (ED) Additional Instructions: I would recommend you not donate plasma more than once a month Is patient prescribed a controlled substance at d/c from ED?: No Referrals: Reggie Cole MD [Primary Care Provider] - 1-2 days
[2019-04-17] MEDS ORDERED: KETOROLAC 30 MG/ML 1 ML VIAL IVP ONE (21:53)
[2019-04-17] MEDS ORDERED: diphenhydrAMINE 50 MG/ML 1 ML VIAL IVP STA (21:53)
[2019-04-17 22:10] LABS: Basophils % (A) 0 %; Eosinophils # (A) 0.1 k/uL (0-0.7); Eosinophils % (A) 2 %; HCT 39.3 % (34.0-46.0); HGB 12.4 gm/dL (11.4-16.0); Lymphocytes # (A) 1.9 k/uL (1.0-4.8); Lymphocytes % (A) 32 %; MCH 27.7 pg (25.0-35.0); MCHC 31.7 g/dL (31.0-37.0); MCV 87.5 fL (80.0-100.0); Mean Platelet Volume 7.1; Monocytes # (A) 0.2 k/uL (0-1.0); Monocytes % (A) 4 %; Neutrophils # (A) 3.5 k/uL (1.3-7.7); Neutrophils % (A) 59 %; Platelet Count 208 k/uL (150-450); RBC 4.49 m/uL (3.80-5.40); RDW 13.2 % (11.5-15.5); WBC 5.9 k/uL (3.8-10.6)
[2019-04-17 22:20] LABS: ALT 18 U/L (9-52); AST 19 U/L (14-36); African American GFR (CKD) >90 (>60 ml/min/1.73 sqM); Albumin 3.3 g/dL (3.5-5.0); Alkaline Phosphatase 38 U/L (38-126); Anion Gap 3 mmol/L; Blood Urea Nitrogen 13 mg/dL (7-17); Calcium 8.8 mg/dL (8.4-10.2); Carbon Dioxide 27 mmol/L (22-30); Chloride 108 mmol/L (98-107); Glucose 95 mg/dL (74-99); Potassium 4.1 mmol/L (3.5-5.1); Sodium 138 mmol/L (137-145); Total Bilirubin 0.2 mg/dL (0.2-1.3); Total Protein 5.9 g/dL (6.3-8.2)
[2019-04-17 23:19] VITALS: PULSE 76; RESP 19; TEMP 98.7
[2019-04-17 23:25] VITALS: BP 121/73
== END 2019-04-17 23:19 | disposition home or self-care (01) ==
LOC: EC 20:19
DX: R51 Headache (principal); R53.81 Other malaise; R53.83 Other fatigue; E07.9 Disorder of thyroid, unspecified; Z79.890 Hormone replacement therapy; Z88.5 Allergy status to narcotic agent; Z88.6 Allergy status to analgesic agent; Z91.011 Allergy to milk products
CPT/HCPCS: 36415; 80053; 85025; 99284; 96374; 96375; 96361; J1200; J1885

== ENCOUNTER 2019-05-21 17:31 | Emergency (ER) | payer OTHER ==
[2019-05-21 17:43] VITALS: RESP 18
--- NOTE | 2019-05-21 18:34 | XR ---
EXAMINATION TYPE: XR shoulder complete LT DATE OF EXAM: 05/21/2019 CLINICAL HISTORY: Pain radiating in to neck, no trauma TECHNIQUE: Three views of the left shoulder are obtained. COMPARISON: None. FINDINGS/IMPRESSION: Mild flattening of the lateral humeral head possibly representing Hill-Sachs lesion, correlate for pr ior glenohumeral dislocation event. No fracture lucencies. Glenohumeral and acromioclavicular joints are congruent.
--- NOTE | 2019-05-21 18:55 | ED ---
Extremity Problem HPI - General Chief complaint: Extremity Problem,Nontraumatic Stated complaint: Shoulder Pain Time Seen by Provider: 05/21/19 17:44 Source: patient Mode of arrival: ambulatory Limitations: no limitations - History of Present Illness Initial comments: Patient is a 48-year-old female presenting to the emergency department with a chief complaint of left shoulder pain. Patient reports this has been ongoing issue for the past few months, although has increasing severity since today. Patient reports the pain is over the anterior aspect of the left shoulder. Patient reports the pain is exacerbated with flexion and abduction of the left shoulder above 90. Patient denies any trauma to the region. She denies any swelling or skin discoloration. Patient reports the pain is alleviated at rest. - Related Data Home Medications Medication Instructions Recorded Confirmed Levothyroxine Sodium [Synthroid] 25 mcg PO DAILY 06/29/17 04/17/19 Allergies Allergy/AdvReac Type Severity Reaction Status Date / Time Milk Containing Products Allergy Unknown Verified 05/21/19 17:39 [Dairy] acetaminophen [From Percocet] AdvReac Nausea & Verified 05/21/19 17:39 Vomiting oxycodone [From Percocet] AdvReac Nausea & Verified 05/21/19 17:39 Vomiting Review of Systems ROS Statement: Those systems with pertinent positive or pertinent negative responses have been documented in the HPI. ROS Other: All systems not noted in ROS Statement are negative. Past Medical History Past Medical History: Thyroid Disorder History of Any Multi-Drug Resistant Organisms: None Reported Additional Past Surgical History / Comment(s): vein surgery Past Psychological History: Depression Smoking Status: Never smoker Past Alcohol Use History: None Reported Past Drug Use History: None Reported General Exam Limitations: no limitations General appearance: alert, in no apparent distress Head exam: Present: atraumatic, normocephalic, normal inspection Eye exam: Present: normal appearance Pupils: Present: normal accommodation ENT exam: Present: normal exam, mucous membranes moist, normal external ear exam Neck exam: Present: normal inspection, full ROM Respiratory exam: Present: normal lung sounds bilaterally Cardiovascular Exam: Present: regular rate, normal rhythm, normal heart sounds Extremities exam: Present: normal inspection, tenderness (Anterior deltoid tenderness. Positive Hawkin's test. neg empty can test), normal capillary refill. Absent: full ROM (Current range of motion above 90.), pedal edema, joint swelling, calf tenderness Back exam: Present: normal inspection, full ROM. Absent: tenderness Neurological exam: Present: alert, oriented X3 Psychiatric exam: Present: normal affect, normal mood Skin exam: Present: warm, intact, normal color Course Vital Signs 05/21/19 17:39 Temperature 97.8 F Pulse Rate 76 Respiratory 18 Rate Blood Pressure 120/81 O2 Sat by Pulse 100 Oximetry Medical Decision Making - Medical Decision Making Patient is a 48-year-old female presenting to emergency Department with a chief complaint of left shoulder pain. This pain has been ongoing for the past few months but has been exacerbated today. Physical examination there is focal tenderness on the anterior aspect of the deltoid. Patient has limited range of motion with abduction and flexion of the shoulder above 90. Negative empty can test but positive Ruth test. X-rays indicative of mild she had flattening suggesting a possible Hill-Sachs lesion. I suspect her symptoms are secondary to shoulder impingement. Patient was to follow-up with orthopedics for further management. Strict return parameters were thoroughly discussed the patient was understanding and agreeable. Patient vised alternate between Tylenol and ibuprofen for pain control. Case discussed physician. Disposition Clinical Impression: Shoulder pain, left, Impingement syndrome, shoulder, left Disposition: HOME SELF-CARE Condition: Stable Instructions (If sedation given, give patient instructions): Rotator Cuff Injury (ED) Additional Instructions: Please follow up with orthopedics. Alternate between Tylenol and ibuprofen for pain control. Please return to emergency department if symptoms worsen. Is patient prescribed a controlled substance at d/c from ED?: No Referrals: Reggie Cole MD [Primary Care Provider] - 1-2 days Laurent Craig DO [Doctor of Osteopathic Medicine] - 1-2 days Time of Disposition: 19:15
[2019-05-21 19:33] VITALS: BP 139/83; PULSE 86; TEMP 98.4
== END 2019-05-21 19:31 | disposition home or self-care (01) ==
LOC: EC 17:31
DX: M75.42 Impingement syndrome of left shoulder (principal); E07.9 Disorder of thyroid, unspecified; Z79.890 Hormone replacement therapy; Z88.5 Allergy status to narcotic agent; Z88.6 Allergy status to analgesic agent; Z91.011 Allergy to milk products
CPT/HCPCS: 99283

== ENCOUNTER 2019-07-29 14:34 | Emergency (ER) | payer OTHER ==
[2019-07-29 14:39] VITALS: BP 150/88; PULSE 80; RESP 16; TEMP 98.4
--- NOTE | 2019-07-29 15:12 | ED ---
General Adult HPI - General Chief complaint: Wound/Laceration Stated complaint: Wound issues Time Seen by Provider: 07/29/19 14:41 Source: patient, RN notes reviewed Mode of arrival: ambulatory Limitations: no limitations - History of Present Illness Initial comments: 48-year-old female presents to the emergency department for a chief complaint of dehiscence of wound of right breast. Patient states that she had a skin biopsy completed a few days ago. States that the stitches are in for about 3 days. States that she went to get the stitches removed today and the wound over the right breast to dehisced. Patient did call the office in the set up for definitive her. Patient is concerned however because the wound is gaping.Patient has no other complaints at this time including shortness of breath, chest pain, abdominal pain, nausea or vomiting, headache, or visual changes. - Related Data Home Medications Medication Instructions Recorded Confirmed Levothyroxine Sodium [Synthroid] 25 mcg PO DAILY 06/29/17 04/17/19 Allergies Allergy/AdvReac Type Severity Reaction Status Date / Time Milk Containing Products Allergy Unknown Verified 07/29/19 14:39 [Dairy] acetaminophen [From Percocet] AdvReac Nausea & Verified 07/29/19 14:39 Vomiting oxycodone [From Percocet] AdvReac Nausea & Verified 07/29/19 14:39 Vomiting Review of Systems ROS Statement: Those systems with pertinent positive or pertinent negative responses have been documented in the HPI. ROS Other: All systems not noted in ROS Statement are negative. Past Medical History Past Medical History: Thyroid Disorder History of Any Multi-Drug Resistant Organisms: None Reported Additional Past Surgical History / Comment(s): vein surgery Past Psychological History: Depression Smoking Status: Never smoker Past Alcohol Use History: None Reported Past Drug Use History: None Reported General Exam Limitations: no limitations General appearance: alert, in no apparent distress Head exam: Present: atraumatic, normocephalic, normal inspection Eye exam: Present: normal appearance, PERRL, EOMI. Absent: scleral icterus, conjunctival injection, periorbital swelling ENT exam: Present: normal exam, mucous membranes moist Neck exam: Present: normal inspection, full ROM. Absent: tenderness, meningismus, lymphadenopathy Respiratory exam: Present: normal lung sounds bilaterally, other (Patient has a 1.5 cm wound dehiscence of the right breast. There is less than half centimeter gaping tissue. No bleeding noted. No signs of infection at this time.). Absent: respiratory distress, wheezes, rales, rhonchi, stridor Cardiovascular Exam: Present: regular rate, normal rhythm, normal heart sounds. Absent: systolic murmur, diastolic murmur, rubs, gallop, clicks Course Vital Signs 07/29/19 14:36 Temperature 98.4 F Pulse Rate 80 Respiratory 16 Rate Blood Pressure 150/88 O2 Sat by Pulse 100 Oximetry Medical Decision Making - Medical Decision Making Wound was cleaned with saline. Steri-Strips were then applied to approximate wound margins. I did discuss monitoring for signs of infection and following up with her physician. Discussed returning here if she has any worsening symptoms. All questions answered. Disposition Clinical Impression: Dehiscence of wound of skin Disposition: HOME SELF-CARE Condition: Good Instructions (If sedation given, give patient instructions): Wound Dehiscence (ED), Steristrips (ED) Additional Instructions: Try to keep the area dry. You may try to remove Steri-Strips after 3-5 days. Please monitor for signs of infections at the spreading or streaking redness, drainage, or fever and return if these occur. Return if you have any other worsening symptoms. Otherwise follow-up with primary care in 1-2 days. Is patient prescribed a controlled substance at d/c from ED?: No Referrals: David Guthrie MD [Primary Care Provider] - 1-2 days Time of Disposition: 15:11
== END 2019-07-29 15:25 | disposition home or self-care (01) ==
LOC: EC 14:34
DX: T81.30XA Disruption of wound, unspecified, initial encounter (principal); E07.9 Disorder of thyroid, unspecified; Z79.890 Hormone replacement therapy; Z91.011 Allergy to milk products; Z88.5 Allergy status to narcotic agent
CPT/HCPCS: 99283

== ENCOUNTER 2019-08-02 01:58 | Emergency (ER) | payer OTHER ==
[2019-08-02 02:06] VITALS: BP 126/75; PULSE 102; RESP 20; TEMP 98.2
--- NOTE | 2019-08-02 03:07 | ED ---
General Adult HPI - General Chief complaint: Recheck/Abnormal Lab/Rx Stated complaint: Abd Pain/ Suture issue Time Seen by Provider: 08/02/19 02:24 Source: patient Mode of arrival: wheelchair Limitations: no limitations - History of Present Illness Initial comments: Patient is a 48-year-old female presenting to the emergency room with a chief complaint of incision site bleeding. Patient is status post breast biopsy where she had the sutures removed after 3 days. Patient reports the incision site did not fully healed. Patient reports she woke up and noticed mild to moderate amounts of blood from the incision site. Patient was concerned and came to the ED for evaluation. Patient reports on the ride to the ED she developed jitters and some abdominal pain. Patient reports the bleeding at this point has stopped. Patient denies any symptoms at this time. Patient reports his shaking was most likely to being cold. - Related Data Home Medications Medication Instructions Recorded Confirmed Levothyroxine Sodium [Synthroid] 25 mcg PO DAILY 06/29/17 08/02/19 Allergies Allergy/AdvReac Type Severity Reaction Status Date / Time Milk Containing Products Allergy Unknown Verified 08/02/19 02:06 [Dairy] acetaminophen [From Percocet] AdvReac Nausea & Verified 08/02/19 02:06 Vomiting oxycodone [From Percocet] AdvReac Nausea & Verified 08/02/19 02:06 Vomiting Review of Systems ROS Statement: Those systems with pertinent positive or pertinent negative responses have been documented in the HPI. ROS Other: All systems not noted in ROS Statement are negative. Past Medical History Past Medical History: Thyroid Disorder History of Any Multi-Drug Resistant Organisms: None Reported Additional Past Surgical History / Comment(s): vein surgery, breast biopsy Past Psychological History: Depression Smoking Status: Never smoker Past Alcohol Use History: None Reported Past Drug Use History: None Reported General Exam Limitations: no limitations General appearance: alert, in no apparent distress Head exam: Present: atraumatic, normocephalic, normal inspection Eye exam: Present: normal appearance, PERRL, EOMI Pupils: Present: normal accommodation ENT exam: Present: normal exam, mucous membranes moist Neck exam: Present: normal inspection, full ROM Respiratory exam: Present: normal lung sounds bilaterally, other (Left breast incision site. Right breast incision in the lower inner quadrant. 1 cm incision site. No active bleeding at this time. Sterile Steri-Strips noted. No surrounding erythema or signs of infection.) Cardiovascular Exam: Present: regular rate, normal rhythm, normal heart sounds Extremities exam: Present: normal inspection, full ROM Back exam: Present: normal inspection, full ROM Neurological exam: Present: alert, oriented X3 Psychiatric exam: Present: normal affect, normal mood Skin exam: Present: warm, dry, intact, normal color Course Vital Signs 08/02/19 02:04 Temperature 98.2 F Pulse Rate 102 H Respiratory 20 Rate Blood Pressure 126/75 O2 Sat by Pulse 99 Oximetry Medical Decision Making - Medical Decision Making Patient is a 48-year-old female presenting to emergency Department with a chief complaint of drainage from incision site. Patient reports she woke up from her sleep and had mild to moderate amounts of bleeding from incision site on the right breast. On examination there is no active bleeding at this time. Steri- Strips were removed and new was replaced. Dressing placed on top of that. No signs of infection at this time. No other type of drainage aside from small amounts of blood. Patient was to follow-up with the physician who performed the procedure. Patient has no pain at this time. Patient initially had complaints of abdominal pain but states they have completely resolved now and could possibly be due to "nerves". Strict return parameters were thoroughly discussed the patient was understanding and agreeable. Case discussed with physician. Disposition Clinical Impression: S/P breast biopsy, right Disposition: HOME SELF-CARE Condition: Stable Instructions (If sedation given, give patient instructions): Fine Needle Breast Biopsy (DC) Additional Instructions: Please follow up with primary care. please return to emergency department if symptoms worsen. Is patient prescribed a controlled substance at d/c from ED?: No Referrals: David Guthrie MD [Primary Care Provider] - 1-2 days Time of Disposition: 03:07
== END 2019-08-02 03:27 | disposition home or self-care (01) ==
LOC: EC 01:58
DX: R10.9 Unspecified abdominal pain (principal); Z48.01 Encounter for change or removal of surgical wound dressing; R25.9 Unspecified abnormal involuntary movements; E07.9 Disorder of thyroid, unspecified; Z88.5 Allergy status to narcotic agent; Z88.6 Allergy status to analgesic agent; Z91.011 Allergy to milk products; Z79.890 Hormone replacement therapy
CPT/HCPCS: 99283

== ENCOUNTER 2023-02-10 18:38 | Emergency (ER) | payer OTHER ==
[2023-02-10 20:35] VITALS: BP 141/85; PULSE 75; RESP 18; TEMP 97.5
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
== END 2023-02-10 22:26 | disposition home or self-care (01) ==
LOC: EC 18:38
DX: S93.601A Unspecified sprain of right foot, initial encounter (principal); E07.9 Disorder of thyroid, unspecified; Z79.890 Hormone replacement therapy; Z88.1 Allergy status to other antibiotic agents; Z88.5 Allergy status to narcotic agent; Z88.6 Allergy status to analgesic agent; Z91.011 Allergy to milk products; W22.8XXA Striking against or struck by other objects, initial encounter
CPT/HCPCS: 99283